=== PATIENT | female | born 1955 ===

== ENCOUNTER 2017-05-07 10:25 | Emergency (ER) | payer SELFPAY ==
[2017-05-07 10:26] VITALS: BMI 31.7
[2017-05-07 10:41] VITALS: RESP 18; O2SAT 98
[2017-05-07] MEDS ORDERED: Albuterol-Ipratrop 3 mg / 0.5 (3 ml) UD INH STA (11:35)
[2017-05-07] MEDS ORDERED: Albuterol-Ipratrop 3 mg / 0.5 (3 ml) UD ONE (11:40)
--- NOTE | 2017-05-07 11:53 | ED PDOC ---
HPI: CCC, URI, Sore Throat Time Seen by Provider: 05/07/17 10:40 Chief Complaint (Nursing): Cough, Cold, Congestion Chief Complaint (Provider): Upper respiratory symptoms History Per: Patient History/Exam Limitations: no limitations Have you had recent travel within the past 21 days to any of the following countries: [place], [place], [place] or [place]?: No Onset/Duration Of Symptoms: Persistent Current Symptoms Are (Timing): Still Present Location Of Pain: Throat, Sinus/es Associated Symptoms: Fever, Cough, Nasal Congestion Additional History Per: Patient Additional Complaint(s): The patient is a 62yo female, presents to the ED for evaluation of upper respiratory symptoms present for the past month. She reports cough, congestion, sinus pressure and headache; additionally states last night she had a tactile fever. She denies any hemoptysis, syncope, weight loss or epistaxis. Patient offers no other medical complaints. Past Medical History Reviewed: Historical Data, Nursing Documentation, Vital Signs Vital Signs: Last Vital Signs Temp 97.6 F 05/07/17 14:00 Pulse 78 05/07/17 14:00 Resp 18 05/07/17 14:00 BP 128/78 05/07/17 14:00 Pulse Ox 98 05/07/17 18:15 - Medical History PMH: No Chronic Diseases - Surgical History Surgical History: Cholecystectomy, Tonsillectomy Other surgeries: hysterectomy, breast cyst removal - Family History Family History: States: No Known Family Hx - Living Arrangements Living Arrangements: With Family - Social History Current smoker - smoking cessation education provided: No (patient has been continuously exposed to 2nd hand smoking) Ex-Smoker (has not smoked in the last 12 months): No Alcohol: None Drugs: Denies - Home Medications Home Medications: Ambulatory Orders Medication Instructions Recorded Albuterol HFA [Ventolin HFA 90 1 - 2 puff IH Q4 PRN #1 inhaler 05/07/17 mcg/actuation (8 g)] Azithromycin [Zithromax] 250 mg PO DAILY #6 tab 05/07/17 Fexofenadine/Pseudoephedrine 1 each PO QAM #10 tab.er.12h 05/07/17 [Abilio-D 12 Hour Tablet] - Allergies Allergies/Adverse Reactions: Allergies Allergy/AdvReac Type Severity Reaction Status Date / Time No Known Allergies Allergy Verified 05/07/17 10:36 Review of Systems ROS Statement: Except As Marked, All Systems Reviewed And Found Negative (as per HPI) Constitutional: Positive for: Fever. Negative for: Weight loss ENT: Positive for: Nose Congestion, Other (sinus pressure). Negative for: Nose Discharge Respiratory: Positive for: Cough. Negative for: Hemoptysis Neurological: Positive for: Headache. Negative for: Other (syncope) Physical Exam - Reviewed Nursing Documentation Reviewed: Yes Vital Signs Reviewed: Yes - Physical Exam Appears: Positive for: Non-toxic, No Acute Distress Head Exam: Positive for: ATRAUMATIC, NORMAL INSPECTION, NORMOCEPHALIC Skin: Positive for: Warm, Dry Eye Exam: Positive for: EOMI, PERRL ENT: Positive for: TM Is/Are (trace fluid behind TM bilaterally), Pharyngeal Erythema (mild) Neck: Positive for: Supple Cardiovascular/Chest: Positive for: Regular Rate, Rhythm Respiratory: Positive for: Wheezing (trace wheeze). Negative for: Rhonchi, Respiratory Distress, Other (edema) Gastrointestinal/Abdominal: Positive for: Soft. Negative for: Tenderness Extremity: Positive for: Normal ROM Neurologic/Psych: Positive for: Alert, Oriented. Negative for: Motor/Sensory Deficits - Laboratory Results Result Diagrams: 05/07/17 11:52 05/07/17 11:52 - ECG O2 Sat by Pulse Oximetry: 98 (RA) Pulse Ox Interpretation: Normal Medical Decision Making Medical Decision Making: Time: 1135 Impression: URI Plan: -- Nebulizer -- Labs Reassess Time: 11:51 XR Chest FINDINGS: LUNGS: No active pulmonary disease. PLEURA: No significant pleural effusion identified. No pneumothorax apparent. CARDIOVASCULAR: Normal. Aorta is normal in size. Trachea is midline. OSSEOUS STRUCTURES: Mild degenerative changes in the thoracic spine. No compression fractures seen. VISUALIZED UPPER ABDOMEN: Normal. Search surgical clips are seen in the right upper quadrant. OTHER FINDINGS: None. IMPRESSION: No active disease. Given length of symptoms, productive cough in ED, Rx zithromax and abilio D, albuterol HFA. Followup clinic Check BP while taking allergra D and discontinue if elevated, see PMD for alternative (no hx HTN per patient) Scribe Attestation: Documented by Esmer Beckett and Alex Harrington acting as a scribe for Fili Sanches DO. Provider Attestation: All medical record entries made by the Scribe were at my direction and personally dictated by me. I have reviewed the chart and agree that the record accurately reflects my personal performance of the history, physical exam, medical decision making, and the department course for this patient. I have also personally directed, reviewed, and agree with the discharge instructions and disposition. Disposition - Clinical Impression Clinical Impression: Upper respiratory infection, Chest congestion - Patient ED Disposition Is Patient to be Admitted: No Counseled Patient/Family Regarding: Studies Performed, Diagnosis, Need For Followup, Rx Given - Disposition Referrals: [facility] [Outside] Disposition: Routine/Home Disposition Time: 13:30 Condition: STABLE Additional Instructions: Take medications as directed. See clinic for followup. Return to ER for any worse or new symptoms. Prescriptions: Albuterol HFA [Ventolin HFA 90 mcg/actuation (8 g)] 1 - 2 puff IH Q4 PRN #1 inhaler PRN Reason: Shortness Of Breath Azithromycin [Zithromax] 250 mg PO DAILY #6 tab Fexofenadine/Pseudoephedrine [Abilio-D 12 Hour Tablet] 1 each PO QAM #10 tab.er.12h Instructions: Upper Respiratory Infection (ED) Forms: [employer] (Sami)
[2017-05-07 12:05] LABS: BASO % 0.2 % (0.0-2.0); EOS # 0.2 K/uL (0.0-0.7); EOS % 1.7 % (0.0-4.0); HEMATOCRIT 39.1 % (34.0-47.0); LYMPH # 2.6 K/uL (1.0-4.3); LYMPH % 21.2 % (20.0-40.0); MEAN CELL VOLUME 88.6 fl (81.0-99.0); MEAN CORPUSCULAR HEMOGLOBIN 28.7 pg (27.0-31.0); MEAN CORPUSCULAR HGB CONC 32.4 g/dL (33.0-37.0); MEAN PLATELET VOLUME 10.6 fl (7.2-11.7); MONO # 0.9 K/uL (0.0-0.8); MONO % 7.2 % (0.0-10.0); NEUT # 8.6 K/uL (1.8-7.0); NEUT % 69.7 % (50.0-75.0); RED CELL DISTRIBUTION WIDTH 14.1 % (11.5-14.5); WHITE BLOOD COUNT 12.3 K/uL (4.8-10.8)
[2017-05-07 12:08] LABS: ALB/GLOB RATIO 1.2 (1.0-2.1); ALKALINE PHOSPHATASE 85 U/L (38-126); ALT/SGPT 26 U/L (9-52); AST/SGOT 20 U/L (14-36); BILIRUBIN,TOTAL 0.4 mg/dl (0.2-1.3); BLOOD UREA NITROGEN 18 mg/dl (7-17); CALCIUM 9.4 mg/dL (8.4-10.2); CARBON DIOXIDE 26 mmol/L (22-30); CHLORIDE 106 mmol/L (98-107); GFR AFRICAN-AMERICAN > 60; GLUCOSE,RANDOM 86 mg/dL (65-105); POTASSIUM 4.1 MMOL/L (3.6-5.0); SODIUM 145 mmol/l (132-148)
[2017-05-07 14:01] VITALS: BP 128/78; PULSE 78; TEMP 97.6
== END 2017-05-07 14:04 | disposition home or self-care (01) ==
LOC: H.ER 10:25
DX: J06.9 Acute upper respiratory infection, unspecified (principal)

== ENCOUNTER 2018-12-13 08:24 | Emergency (ER) | payer SELFPAY ==
[2018-12-13 08:32] VITALS: BP 144/64; PULSE 66; RESP 20; TEMP 98.8; O2SAT 96; BMI 32.5
--- NOTE | 2018-12-13 08:40 | ED PDOC ---
Upper Extremity Pain/Injury Time Seen by Provider: 12/13/18 08:29 Chief Complaint (Nursing): Upper Extremity Problem/Injury Chief Complaint (Provider): Left arm and lower back injury History Per: Patient History/Exam Limitations: no limitations Onset/Duration Of Symptoms: Hrs Current Symptoms Are (Timing): Still Present Additional Complaint(s): 63 y/o female [place] the ER [place] her left shoulder, left arm, and lower back. Denies head injury, LOC, or antecedent dizziness. PMD: Sherwin Pickard Past Medical History Reviewed: Historical Data, Nursing Documentation, Vital Signs Vital Signs: Last Vital Signs Temp 98.8 F 12/13/18 08:28 Pulse 66 12/13/18 08:28 Resp 20 12/13/18 08:28 BP 144/64 12/13/18 08:28 Pulse Ox 96 12/13/18 08:28 - Medical History PMH: No Chronic Diseases - Surgical History Surgical History: Cholecystectomy, Tonsillectomy Other surgeries: Left knee surgery - Family History Family History: States: Unknown Family Hx - Home Medications Home Medications: Ambulatory Orders Medication Instructions Recorded Albuterol HFA [Ventolin HFA 90 1 - 2 puff IH Q4 PRN #1 inhaler 05/07/17 mcg/actuation (8 g)] Azithromycin [Zithromax] 250 mg PO DAILY #6 tab 05/07/17 Fexofenadine/Pseudoephedrine 1 each PO QAM #10 tab.er.12h 05/07/17 [[place]-D 12 Hour Tablet] Naproxen [Naprosyn] 500 mg PO Q12H #20 tab 12/13/18 - Allergies Allergies/Adverse Reactions: Allergies Allergy/AdvReac Type Severity Reaction Status Date / Time No Known Allergies Allergy Verified 05/07/17 10:36 Review of Systems ROS Statement: Except As Marked, All Systems Reviewed And Found Negative Musculoskeletal: Positive for: Arm Pain (left), Back Pain (lower). Negative for: Other (Head injury) Neurological: Negative for: Other (LOC) Physical Exam - Reviewed Nursing Documentation Reviewed: Yes Vital Signs Reviewed: Yes - Physical Exam Appears: Positive for: No Acute Distress Head Exam: Positive for: ATRAUMATIC, NORMAL INSPECTION, NORMOCEPHALIC Skin: Positive for: Normal Color, Warm, Dry Eye Exam: Positive for: Normal appearance Neck: Positive for: Normal ((-) posterior tenderness), Painless ROM Cardiovascular/Chest: Positive for: Regular Rate, Rhythm Respiratory: Positive for: Normal Breath Sounds. Negative for: Wheezing, Respiratory Distress Back: Positive for: Other ((+) right paralumbar tenderness, (-) midline spinal tenderness, (-) deformity) Extremity: Positive for: Other (Left shoulder: (+) tenderness, (-) deformity, ROM limited by pain. Left elbow: (-) deformity. Left hand: (+) tenderness, (-) ecchymosis, (-) deformity.) Neurological/Psych: Positive for: Awake, Alert, Oriented (x3). Negative for: Motor/Sensory Deficits (focal deficits) - ECG O2 Sat by Pulse Oximetry: 96 (RA) Pulse Ox Interpretation: Normal Medical Decision Making Medical Decision Making: Initial Impression: Left arm and back pain Initial Plan: --Left shoulder X-ray --LS spine X-ray ? avulsion chip left shoulder Scribe Attestation: Documented by Luis Ruiz acting as a scribe for Evan Moody MD. Provider Scribe Attestation: All medical record entries made by the Scribe were at my direction and personally dictated by me. I have reviewed the chart and agree that the record accurately reflects my personal performance of the history, physical exam, medical decision making, and the department course for this patient. I have also personally directed, reviewed, and agree with the discharge instructions and disposition. Disposition - Clinical Impression Clinical Impression: Shoulder fracture, Low back sprain - Patient ED Disposition Is Patient to be Admitted: No Counseled Patient/Family Regarding: Studies Performed, Diagnosis, Need For Followup, Rx Given - Disposition Referrals: FAMILY PROVIDER,NO [Primary Care Provider] - Regan Iverson MD [Staff Provider] - Disposition: Routine/Home Disposition Time: 09:20 Condition: FAIR Prescriptions: Naproxen [Naprosyn] 500 mg PO Q12H #20 tab Instructions: Shoulder Fracture, Lumbar Muscle Strain Forms: [facility] (Pashto)
--- NOTE | 2018-12-13 09:26 | RAD ---
Date of service: 12/13/2018 PROCEDURE: Radiographs of the Lumbar Spine. HISTORY: trauma COMPARISON: No prior. TECHNIQUE: 5 views obtained. FINDINGS: BONES: Limited levoscoliotic lumbar spinal deformity. Mild straightening of the lumbar curvature. No definite vertebral body fracture appreciable. No destructive bony lesion apparent grossly. DISC SPACES: Diffuse disc height loss is seen with vacuum disc changes at inferior and mid lumbar levels compatible with advanced degenerative disease. [id number] multilevel spondylosis noted diffusely. OTHER FINDINGS: Surgical clips right upper quadrant abdomen. IMPRESSION: Advanced multilevel degenerative disc disease particularly at the mid inferior levels with mild levoscoliotic lumbar spinal deformity noted.
--- NOTE | 2018-12-13 13:52 | RAD ---
Date of service: 12/13/2018 PROCEDURE: Radiographs of the Left Shoulder HISTORY: trauma COMPARISON: Left shoulder radiographs 07/20/2017. TECHNIQUE: 3 views obtained. FINDINGS: BONES: No acute fracture or destructive bony lesion identified. JOINTS: No subluxation or dislocation appreciated. However, advanced degenerative change are identified at the glenohumeral joint with irregular cortical sclerosis present and osteophyte development as well as joint space narrowing present. Subchondral cyst formation is also suggested at least at the inferior margins of the joint. Pattern is increased in the interval. Limited degenerative changes seen the acromioclavicular joint. No joint separation identified. SOFT TISSUES: Normal. OTHER FINDINGS: None. IMPRESSION: No acute fracture or dislocation left shoulder. Increased, advanced osteoarthritis is identified at the glenohumeral joint, again mild at the acromioclavicular joint.
== END 2018-12-13 10:17 | disposition home or self-care (01) ==
LOC: SUPCPDRO 08:24 → H.ER 08:24
DX: S42.201A Unspecified fracture of upper end of right humerus, initial encounter for closed fracture (principal); S39.012A Strain of muscle, fascia and tendon of lower back, initial encounter; W19.XXXA Unspecified fall, initial encounter; Y92.89 Other specified places as the place of occurrence of the external cause